=== PATIENT | female | born 1965 | race Caucasian/White ===

== ENCOUNTER 2023-12-11 04:46 | Emergency (ER) | payer BC, OTHER, SELFPAY ==
[~2023-12-11] VITALS: Ht 167.6 cm; Wt 101.2 kg
[~2023-12-11 04:46] MED LIST: No Historical Meds; PAIN325T PO
[2023-12-11 06:05] LABS: BASO # 0.1 10^3/uL (0.0-0.2); BASO % 0.4 % (0.0-1.0); EOS # 0.1 10^3/uL (0.0-0.5); EOS % 0.8 % (0.0-3.0); HEMATOCRIT 48.3 % (36.0-47.0); HEMOGLOBIN 15.8 g/dl (12.0-15.5); LYMPH # 1.5 10^3/uL (1.5-5.0); LYMPH % 10.4 % (24.0-44.0); MEAN CORPUSCULAR HEMOGLOBIN 28.9 pg (27.0-33.0); MEAN CORPUSCULAR HGB CONC 32.7 g/dl (32.0-36.5); MEAN CORPUSCULAR VOLUME 88.3 fl (80.0-96.0); MONO % 6.7 % (2.0-8.0); NEUTROPHILS % 81.3 % (36.0-66.0); PLATELET COUNT, AUTOMATED 350 10^3/uL (150-450); RED BLOOD COUNT 5.47 10^6/uL (4.00-5.40); WHITE BLOOD COUNT 14.8 10^3/uL (4.0-10.0)
[2023-12-11 06:26] LABS: LIPASE 40 U/L (12-53)
[2023-12-11 06:27] LABS: AMYLASE 57 U/L (30-118)
[2023-12-11 06:28] LABS: ALBUMIN 4.1 G/DL (3.2-5.2); ALKALINE PHOSPHATASE 88 U/L (46-116); ALT/SGPT 31 U/L (7.0-40); AST/SGOT 27 U/L (<34); BILIRUBIN,DIRECT 0.1 MG/DL (<0.4); BILIRUBIN,TOTAL 0.5 MG/DL (0.3-1.2); BLOOD UREA NITROGEN 10 MG/DL (9-23); CALCIUM LEVEL 9.7 MG/DL (8.3-10.6); CARBON DIOXIDE LEVEL 29 MMOL/L (20-31); CHLORIDE LEVEL 106 MMOL/L (98-107); CREATININE FOR GFR 0.74 MG/DL (0.55-1.30); GLOMERULAR FILTRATION RATE > 60.0 (>45); GLUCOSE, FASTING 136 MG/DL (74-106); POTASSIUM SERUM 4.6 MMOL/L (3.5-5.1); SODIUM LEVEL 141 MMOL/L (136-145); TOTAL PROTEIN 7.1 G/DL (5.7-8.2)
[2023-12-11] MEDS: NS 1,000 ML IV ONE (06:29)
[2023-12-11 08:38] VITALS: BP 161/84; TEMP 96.8; O2SAT 99
[2023-12-11] MEDS ORDERED: AMOX875T2 PO (09:08)
== END 2023-12-11 09:20 | disposition home or self-care (01) ==
LOC: M ED 04:46
DX: K80.66 Calculus of gallbladder and bile duct with acute and chronic cholecystitis without obstruction (principal); Z79.2 Long term (current) use of antibiotics

== ENCOUNTER 2024-01-15 09:06 | Day surgery (SDC) | payer BC ==
[~2024-01-15] VITALS: Ht 165.1 cm; Wt 93.6 kg
[~2024-01-15 09:06] MED LIST changes: +AMOX875T2 PO
[2024-01-15] MEDS ORDERED: LR 1,000 ML IV SCH ×2 (09:15→12:15)
[2024-01-15] MEDS ORDERED: MIDAZOLAM INJ 2MG/2ML VIAL As Ordered ONE (10:07)
[2024-01-15] MEDS ORDERED: fentaNYL 100 MCG/2 ML INJECTION As Ordered ONE (10:07)
[2024-01-15] MEDS ORDERED: LIDOCAINE 2% 100MG/5ML SDV (FOR ANES.) As Ordered ONE (10:08)
[2024-01-15] MEDS ORDERED: ROCURONIUM BROMIDE 50MG/5ML VIAL As Ordered ONE (10:08)
[2024-01-15] MEDS ORDERED: propofoL 200 MG/20 ML VIAL As Ordered ONE (10:09)
[2024-01-15] MEDS ORDERED: ACETAMINOPHEN 1000MG 100ML IV BAG As Ordered ONE (10:41)
[2024-01-15] MEDS: ceFAZolin SOD 2 GM in IV 1 EA IV ONE (11:10)
[2024-01-15] MEDS ORDERED: SUGAMMADEX SODIUM 500 MG/5 ML VIAL (BRIDION) As Ordered ONE (11:12)
[2024-01-15] MEDS ORDERED: KETOROLAC 60MG 2ML VIAL As Ordered ONE (11:12)
[2024-01-15] MEDS ORDERED: ONDANSETRON 4MG 2ML VIAL As Ordered ONE (11:12)
[2024-01-15] MEDS ORDERED: ePHEDrine SULFATE 25 MG/5 ML(5MG/ML) SYRINGE As Ordered ONE (11:31)
[2024-01-15] MEDS ORDERED: PHENYLephrine 500MCG 5ML (100MCG/ML) SYRINGE As Ordered ONE (11:31)
[2024-01-15] MEDS ORDERED: HYDROMORPHONE HCL 0.5 MG/ 0.5 ML SYRINGE IV PRN (12:15)
[2024-01-15] MEDS ORDERED: oxyCODONE 5MG TAB PO PRN (12:15)
[2024-01-15] MEDS ORDERED: fentaNYL 100 MCG/2 ML INJECTION IV PRN (12:15)
[2024-01-15] MEDS: ONDANSETRON 4MG 2ML VIAL IV PRN (12:52)
[2024-01-15 14:11] VITALS: BP 153/74; TEMP 97.1; O2SAT 99
== END 2024-01-15 14:15 | disposition home or self-care (01) ==
LOC: M SDC 09:06
PROVIDERS: ATTEND Surgery
DX: K80.10 Calculus of gallbladder with chronic cholecystitis without obstruction (principal)
CPT/HCPCS: 47562; 88304; 93005; J0131; J0665; J0690; J1100; J1885; J2250; J2371; J2405; J3010